=== PATIENT | male | born 1985 | race Two or more races ===

== ENCOUNTER 2020-08-06 14:32 | Outpatient (CLI) | payer OTHER | END 2020-08-06 14:43 | disposition home or self-care (01) | LOC: SONOGRAMA 14:32 → MAMO-SONO 15:15 | PROVIDERS: ATTEND Specialist | DX: D21.6 Benign neoplasm of connective and other soft tissue of trunk, unspecified (principal) ==

== ENCOUNTER 2020-08-25 04:51 | Day surgery (SDC) | payer OTHER | END 2020-08-25 11:17 | disposition home or self-care (01) | LOC: CIR.AMB 04:51 | PROVIDERS: ATTEND Specialist | DX: L72.0 Epidermal cyst (principal); Z20.822 Contact with and (suspected) exposure to COVID-19 ==